=== PATIENT | female | born 1970 | race Caucasian/White ===

== ENCOUNTER 2017-11-14 16:54 | Emergency (ER) | payer MEDICAID ==
[2017-11-14] MEDS ORDERED: Ondansetron 4 MG Tab.DIS PO ONE (17:25)
--- NOTE | 2017-11-14 17:33 | EDM.PDOC ---
ED HPI GENERAL MEDICAL PROBLEM - General Chief Complaint: ENT Problem Stated Complaint: RT SIDE FACE PAIN Time Seen by Provider: 11/14/17 17:15 Source of Information: Reports: Patient History Limitations: Reports: No Limitations - History of Present Illness INITIAL COMMENTS - FREE TEXT/NARRATIVE: 47 yo female presents with pain in the R maxillary area for a couple weeks. Was initially given an antibiotic with no benefit. Then went to her dentist who X- ray'd her and said there was no pathology present. Now has an MRI scheduled for this coming Thursday. Is not getting relief with 1 Vicodin and ibuprofen. Hasn't been taking Vicodin 2 at a time due to the nausea it causes. No fever. Has a tooth missing in the area of her pain. Feels better sitting up, worse lying down. Here with a sister. 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, Other (see below) (hydrocodone 1/2 -1) - Related Data Allergies Allergy/AdvReac Type Severity Reaction Status Date / Time Penicillins Allergy Rash Verified 11/14/17 17:06 Home Meds: Home Meds Clindamycin HCl [Cleocin] 11/14/17 [History] Estrogens, Conjugated [Premarin] 11/14/17 [History] Gabapentin [Neurontin] 100 - 300 mg PO TID PRN #20 capsule 11/14/17 [Rx] Hydrocodone/Acetaminophen [Vicodin 5-300 mg Tablet] 11/14/17 [History] Past Medical History - Past Surgical History HEENT Surgical History: Reports: Tonsillectomy GI Surgical History: Reports: Appendectomy, Cholecystectomy Female Surgical History: Reports: Hysterectomy Social & Family History - Tobacco Use Smoking Status *Q: Never Smoker ED ROS ENT - Review of Systems Review Of Systems: See Below Constitutional: Reports: No Symptoms HEENT: Reports: Dental Pain (? pain in the area of a missing tooth. Extraction not recent.). Denies: Ear Discharge, Ear Pain, Eye Discharge, Hearing Loss, Nose Pain, Rhinitis, Throat Pain, Throat Swelling Respiratory: Reports: No Symptoms Cardiovascular: Reports: No Symptoms GI/Abdominal: Reports: No Symptoms : Reports: No Symptoms Musculoskeletal: Reports: No Symptoms Skin: Reports: No Symptoms Neurological: Reports: No Symptoms ED EXAM, ENT - Physical Exam Exam: See Below Exam Limited By: No Limitations General Appearance: Alert, WD/WN, No Apparent Distress Eye Exam: Bilateral Eye: Normal Inspection Ears: Normal External Exam, Normal Canal, Hearing Grossly Normal, Normal TMs Nose: Normal Inspection, Normal Mucousa, No Blood Mouth/Throat: Normal Inspection, Normal Gums, Normal Lips, Normal Oropharynx, Other (molar missing in area of pain. No swelling. No redness. Adjacent teeth in good condition. ) Head: Atraumatic, Normocephalic. No: Facial Abrasions, Facial Swelling, Facial Tenderness Neck: Normal Inspection, Supple, Non-Tender Respiratory/Chest: No Respiratory Distress, No Accessory Muscle Use Neurological: Alert, Oriented, CN II-XII Intact, Normal Cognition, No Motor/ Sensory Deficits Psychiatric: Normal Affect, Normal Mood Skin: Warm, Dry, Intact, Normal Color, No Rash Lymphatic: No Adenopathy Course - Vital Signs Text/Narrative:: Zofran ODT 4 mg SL, followed 10 min later by [facility] x 2(patient's own)-no significant change gabapentin 200 mg po given Last Recorded V/S: Last Vital Signs Temp 36.5 C 11/14/17 17:11 Pulse 90 11/14/17 17:11 Resp 12 11/14/17 17:11 BP 176/72 H 11/14/17 17:11 Pulse Ox - Orders/Labs/Meds Meds: Medications Discontinued Medications Generic Name Dose Route Start Last Admin Trade Name Dion PRN Reason Stop Dose Admin Ondansetron HCl 4 mg 11/14/17 17:25 11/14/17 17:28 Zofran Odt PO 11/14/17 17:26 4 mg ONETIME ONE Administration Departure - Departure Time of Disposition: 18:50 Disposition: Home, Self-Care 01 Condition: Good Clinical Impression: Facial pain syndrome - Discharge Information Referrals: Chuck Cummins MD [Primary Care Provider] - Forms: ED Department Discharge
[2017-11-14] MEDS ORDERED: Gabapentin 100 MG Cap PO ONE (18:30)
== END 2017-11-14 18:50 | disposition home or self-care (01) ==
LOC: JP.ED 16:54
DX: R51 Headache (principal); Z88.0 Allergy status to penicillin
CPT/HCPCS: 99283; A9270

== ENCOUNTER 2018-02-18 14:08 | Emergency (ER) | payer MEDICAID ==
--- NOTE | 2018-02-18 15:08 | EDM.PDOC ---
ED HPI GENERAL MEDICAL PROBLEM - General Chief Complaint: Chest Pain Stated Complaint: CHEST PAIN/SOB Time Seen by Provider: 02/18/18 14:45 Source of Information: Reports: Patient, Old Records, RN History Limitations: Reports: No Limitations - History of Present Illness INITIAL COMMENTS - FREE TEXT/NARRATIVE: 47 yo female non-smoker presents with several days of intermittent L costochondral pain. Pain is not associated with any other sx's. Has noticed that her BP is also running high for the past few months. Has not been to the clinic for this. Is not diabetic. Does not know her cholesterol. No calf pain or leg swelling. No fever. No SOB or nausea. Onset Date: 02/14/18 Duration: Intermittent Location: Reports: Chest Quality: Reports: Sharp Severity: Mild Improves with: Reports: None Worsens with: Reports: None (seems like it does occur with breathing or coughing.) Context: Reports: Other (unknown) Associated Symptoms: Reports: No Other Symptoms Treatments [employer]: Reports: Other (see below) (none) Anterior Chest Pain Score (Numeric/FACES): 5 - Related Data Allergies Allergy/AdvReac Type Severity Reaction Status Date / Time Penicillins Allergy Rash Verified 02/18/18 14:40 Home Meds: Home Meds Estrogens, Conjugated [Premarin] 1 tab PO DAILY 11/14/17 [History] 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: Musculoskeletal History: Reports: Fracture Other Musculoskeletal History: fx hip - Infectious Disease History Infectious Disease History: Reports: Chicken Pox, Shingles - Past Surgical History HEENT Surgical History: Reports: Tonsillectomy GI Surgical History: Reports: Appendectomy, Cholecystectomy Female Surgical History: Reports: Hysterectomy Social & Family History - Tobacco Use Smoking Status *Q: Never Smoker Second Hand Smoke Exposure: No - Caffeine Use Caffeine Use: Reports: Soda - Alcohol Use Days Per Week of Alcohol Use: 2 Number of Drinks Per Day: 2 Total Drinks Per Week: 4 - Recreational Drug Use Recreational Drug Use: No ED ROS GENERAL - Review of Systems Review Of Systems: See Below Constitutional: Reports: No Symptoms HEENT: Reports: No Symptoms Respiratory: Reports: No Symptoms, Pleuritic Chest Pain (pain is a little more noticeable with breathing/coughing) Cardiovascular: Reports: Chest Pain (Just L of sternum) GI/Abdominal: Reports: No Symptoms. Denies: Nausea Musculoskeletal: Reports: Other (chest wall tenderness at site of pain) Skin: Reports: No Symptoms. Denies: Diaphoresis Neurological: Reports: No Symptoms ED EXAM, GENERAL - Physical Exam Exam: See Below Exam Limited By: No Limitations General Appearance: Alert, WD/WN, No Apparent Distress Eye Exam: Bilateral Eye: Normal Inspection Ears: Normal External Exam, Normal Canal, Hearing Grossly Normal Nose: Normal Inspection, Normal Mucosa, No Blood Throat/Mouth: Normal Inspection, Normal Lips, Normal Oropharynx, Normal Voice, No Airway Compromise Head: Atraumatic, Normocephalic Neck: Normal Inspection Respiratory/Chest: No Respiratory Distress, Lungs Clear, Normal Breath Sounds, No Accessory Muscle Use, Other (point tenderness at the L costochodral jxn. ) Cardiovascular: Regular Rate, Rhythm, No Edema GI/Abdominal: Normal Bowel Sounds, Soft, Non-Tender, No Distention Back Exam: Normal Inspection Extremities: Normal Inspection, Normal Range of Motion, Non-Tender, No Pedal Edema Neurological: Alert, Oriented, CN II-XII Intact, Normal Cognition, No Motor/ Sensory Deficits Psychiatric: Normal Affect, Normal Mood Skin Exam: Warm, Dry, Intact, Normal Color, No Rash Lymphatic: No Adenopathy Course - Vital Signs Last Recorded V/S: Last Vital Signs Temp 36.6 C 02/18/18 14:39 Pulse 88 02/18/18 14:53 Resp 12 02/18/18 14:53 BP 140/88 02/18/18 14:53 Pulse Ox 97 02/18/18 14:53 Departure - Departure Time of Disposition: 15:20 Disposition: Home, Self-Care 01 Condition: Good Clinical Impression: Costochondral chest pain - Discharge Information Referrals: Chuck Cummins MD [Primary Care Provider] - Forms: ED Department Discharge
== END 2018-02-18 15:11 | disposition home or self-care (01) ==
LOC: JP.ED 14:08
DX: R07.1 Chest pain on breathing (principal); Z88.0 Allergy status to penicillin; Z79.899 Other long term (current) drug therapy
CPT/HCPCS: 99285